=== PATIENT | male | born 1995 | race Caucasian/White ===

== ENCOUNTER 2017-04-28 12:22 | Emergency (ER) | payer BC ==
[2017-04-28] MEDS ORDERED: CHLORHEXIDINE GLUCONATE 4 % 15 ML UD TOP ONE (12:35)
--- NOTE | 2017-04-28 12:43 | ED.PDOC ---
History of Present Illness - General Chief Complaint: Lower Extremity Injury Time Seen by Provider: 04/28/17 12:41 Source: patient Additional Information: 21 YEAR OLD WHITE MALE PRESENTS WITH A PUCTURE WOUND TO THE RIGHT MID FOOT AFTER HE ACCIDENTALLY STEPPED ON A DEER HORN LAST NIGHT HE IS A STUDENT ON [employer] HE IS NOT SURE OF HIS TETANUS IMMUNIZATION STATUS - History of Present Illness Occurred: yesterday Method of Injury: other Improving Factors: nothing Worsening Factors: nothing Allergies/Adverse Reactions: Allergies NO KNOWN ALLERGY Allergy (Verified 04/28/17 12:40) Home Medications: Ambulatory Orders Sulfa/Trimeth 800/160 (Ds) Tab [Bactrim DS Tab] 1 ea PO Q12HR #20 tab 04/28/17 Review of Systems - Review of Systems Constitutional: States: no symptoms reported EENTM: States: no symptoms reported Respiratory: States: no symptoms reported Cardiology: States: no symptoms reported Gastrointestinal/Abdominal: States: no symptoms reported Genitourinary: States: no symptoms reported Skin: States: see HPI Neurological: States: no symptoms reported Endocrine: States: no symptoms reported Physical Exam - Physical Exam General Appearance: Alert Eyes, Ears, Nose, Throat: PERRL/EOMI Neck: non-tender, full range of motion, supple Cardiovascular/Respiratory: regular rate, rhythm, no M/R/G, normal peripheral pulses Gastrointestinal/Abdominal: non-tender Back: normal inspection, no CVA tenderness Leg: normal inspection, non-tender Foot: other - PLANTAR SURFACE OF RIGHT FOOT 2 CM LACERATION AND SURROUNDING SOFT TISSUE SWELLING NOTED NO REDNESS NO DRAINAGE AT THIS TIME Progress - Results/Orders Results/Orders: WOUND WAS WASHED OUT AND CLEANED Departure - Departure Clinical Impression: Puncture wound Time of Disposition: 12:47 Disposition: Discharge to Home or Self Care Condition: Good Departure Forms: ED Discharge - Pt. Copy, Patient Portal Self Enrollment Diet: full liquid diet Activity: increase activity as tolerated Prescriptions: Sulfa/Trimeth 800/160 (Ds) Tab [Bactrim DS Tab] 1 ea PO Q12HR #20 tab Home Medications: Ambulatory Orders Sulfa/Trimeth 800/160 (Ds) Tab [Bactrim DS Tab] 1 ea PO Q12HR #20 tab 04/28/17
[2017-04-28] MEDS ORDERED: TETANUS,DIPHTHERIA,PERTUSSIS 1 EA SYG IM ONE (12:45)
[2017-04-28] MEDS ORDERED: TETANUS IMMUNE GLOBULIN IM ONE (12:45)
[2017-04-28 12:50] VITALS: BP 148/95; TEMP 99; O2SAT 95
[2017-04-28] MEDS ORDERED: SULFA/TRIMETH 800/160 (DS) TAB 1 EA TAB PO ONE (13:09)
== END 2017-04-28 13:21 | disposition home or self-care (01) ==
LOC: ER 12:22
DX: S91.331A Puncture wound without foreign body, right foot, initial encounter (principal); Z23 Encounter for immunization; W26.8XXA Contact with other sharp object(s), not elsewhere classified, initial encounter; Y92.9 Unspecified place or not applicable